=== PATIENT | male | born 1955 | race American Indian/Alaskan Native ===

== ENCOUNTER 2019-12-31 13:22 | Observation (INO) | payer OTHER ==
[2019-12-31] MEDS ORDERED: ASPIRIN 81 MG TAB CHEW PO ONE (14:34)
[2019-12-31] MEDS ORDERED: MORPHINE 4 MG/1 ML INJ IV ONE (14:35)
[2019-12-31] MEDS ORDERED: ONDANSETRON 4 MG/2 ML INJ IV ONE (14:35)
[2019-12-31 14:58] LABS: Basophils % (Auto) 0.4 % (0.0-1.8); Eosinophils % (Auto) 0.3 % (0.0-4.3); Hematocrit 37.3 % (35.5-45.6); Hemoglobin 12.4 gm/dl (11.8-15.2); Lymphocytes # (Auto) 0.9 K/mm3 (1.2-5.4); Lymphocytes % (Auto) 10.3 % (13.4-35.0); Mean Corpuscular HGB Conc 33 % (32-34); Mean Corpuscular Volume 84 fl (84-94); Monocytes # (Auto) 1.1 K/mm3 (0.0-0.8); Monocytes % (Auto) 12.3 % (0.0-7.3); Platelet Count 408 K/mm3 (140-440); Red Blood Count 4.42 M/mm3 (3.65-5.03); Red Cell Distribution Width 15.1 % (13.2-15.2)
--- NOTE | 2019-12-31 15:00 | Emergency Department Report ---
ED Chest Pain HPI - General Chief Complaint: Pain General Stated Complaint: CHEST PAIN/GOUT Time Seen by Provider: 12/31/19 14:25 Source: EMS Mode of arrival: Stretcher Limitations: No Limitations - History of Present Illness Initial Comments: Patient is 64 years old male with history of coronary artery disease status post stents, hypertension and gout. Patient also reported history of cardiac arrest in October 2019. Patient presented to the ER complaining of left sided chest pain radiation to the left arm. Patient stated the pain started this morning. Patient stated that he took 3 nitro and it did help with his pain. Patient is denying any shortness of breath, cough fever or chills. Patient is also complaining of generalized joint pain and swelling. He stated that he thinks that his gout is flaring up. MD Complaint: chest pain -: This morning Onset: during rest Pain Location: left chest Pain Radiation: LUE Severity: moderate Severity scale (0 -10): 10 Quality: tightness - Related Data Allergies Allergy/AdvReac Type Severity Reaction Status Date / Time No Known Allergies Allergy Unverified 11/29/19 08:16 Heart Score - HEART Score History: Moderately suspicious EKG: Non-specific Age: 45-65 Risk factors: > 3 risk factors or hx of atherosclerotic disease Troponin: < normal limit HEART Score: 5 - Critical Actions Critical Actions: 4-6 pts:12-16.6% risk of adverse cardiac event. Should be admitted ED Review of Systems ROS: Stated complaint: CHEST PAIN/GOUT Other details as noted in HPI Comment: All other systems reviewed and negative Constitutional: denies: chills, fever Respiratory: denies: cough, shortness of breath, SOB with exertion, SOB at rest, wheezing Cardiovascular: chest pain Gastrointestinal: denies: abdominal pain, nausea, vomiting Musculoskeletal: denies: back pain ED Past Medical Hx - Past Medical History Previous Medical History?: Yes Hx Hypertension: Yes Hx Heart Attack/AMI: Yes Hx Arthritis: Yes Additional medical history: Gout. Cardiac arrest (2019). Left hand crushed in accident (limited movement) - Surgical History Past Surgical History?: Yes Hx Coronary Stent: Yes Additional Surgical History: Ortho - Social History Smoking Status: Former Smoker ED Physical Exam - General Limitations: No Limitations General appearance: alert, in no apparent distress - Head Head exam: Present: atraumatic, normocephalic, normal inspection - Eye Eye exam: Present: normal appearance, PERRL - ENT ENT exam: Present: normal exam, normal orophraynx, mucous membranes moist - Neck Neck exam: Present: normal inspection, full ROM. Absent: tenderness, meningismus, lymphadenopathy, thyromegaly - Respiratory Respiratory exam: Present: normal lung sounds bilaterally - Cardiovascular Cardiovascular Exam: Present: regular rate, normal rhythm, normal heart sounds - GI/Abdominal GI/Abdominal exam: Present: soft, normal bowel sounds. Absent: distended, tenderness, guarding, rebound, rigid, organomegaly, mass, bruit, pulsatile mass, hernia - Extremities Exam Extremities exam: Present: normal inspection, full ROM, normal capillary refill. Absent: tenderness, pedal edema, joint swelling, calf tenderness - Back Exam Back exam: Present: normal inspection, full ROM. Absent: CVA tenderness (R), CVA tenderness (L), muscle spasm, paraspinal tenderness, vertebral tenderness - Neurological Exam Neurological exam: Present: alert, oriented X3, CN II-XII intact, normal gait, reflexes normal. Absent: motor sensory deficit - Psychiatric Psychiatric exam: Present: normal mood - Skin Skin exam: Present: warm, intact, normal color ED Course Vital Signs 12/31/19 12/31/19 12/31/19 14:08 14:12 14:16 Temperature 99.1 F Pulse Rate 70 68 Respiratory 20 12 Rate Blood Pressure 127/79 Blood Pressure 127/79 [Right] O2 Sat by Pulse 99 99 100 Oximetry 12/31/19 12/31/19 12/31/19 14:30 14:46 15:00 Temperature Pulse Rate 73 71 73 Respiratory 10 L 15 19 Rate Blood Pressure 127/79 127/79 127/79 Blood Pressure [Right] O2 Sat by Pulse 100 98 100 Oximetry 12/31/19 12/31/19 12/31/19 15:16 15:30 15:33 Temperature Pulse Rate 76 71 Respiratory 18 22 16 Rate Blood Pressure 127/79 127/79 Blood Pressure [Right] O2 Sat by Pulse 96 96 Oximetry 12/31/19 12/31/19 15:46 16:00 Temperature Pulse Rate 68 71 Respiratory 18 14 Rate Blood Pressure 127/79 127/79 Blood Pressure [Right] O2 Sat by Pulse 98 94 Oximetry ED Medical Decision Making - Lab Data Result diagrams: 12/31/19 14:44 12/31/19 14:44 - EKG Data -: EKG Interpreted by Me EKG shows normal: sinus rhythm Rate: normal - EKG Data Interpretation: no acute changes - Radiology Data Radiology results: report reviewed - Medical Decision Making Patient is 64 years old male with history of coronary artery disease status post stents, hypertension and gout. Patient also reported history of cardiac arrest in October 2019. Patient presented to the ER complaining of left sided chest pain radiation to the left arm. Patient stated the pain started this morning. Patient stated that he took 3 nitro and it did help with his pain. Patient is denying any shortness of breath, cough fever or chills. Patient is also complaining of generalized joint pain and swelling. He stated that he thinks that his gout is flaring up. Patient stated that he already took 4 baby aspirin this morning. EKG showed no ST elevation. Labs reviewed and is unremarkable including a negative troponin. Patient received morphine for pain. I discussed the patient with Dr. Cano, he agreed to admit the patient to medical service for further management. Critical care attestation.: If time is entered above; I have spent that time in minutes in the direct care of this critically ill patient, excluding procedure time. ED Disposition Clinical Impression: Chest pain, Acute gouty arthritis Disposition: OP ADMIT IP TO THIS HOSP Is pt being admited?: Yes Condition: Stable Instructions: Chest Pain (ED) Referrals: PRIMARY CARE, [Primary Care Provider] - 3-5 Days
[2019-12-31 15:15] LABS: INR 1.22 (0.87-1.13); Partial Thromboplastin Time 31.7 Sec. (24.2-36.6)
[2019-12-31 15:16] LABS: BUN/Creatinine Ratio 13; Blood Urea Nitrogen 18 mg/dL (9-20); Calcium 9.5 mg/dL (8.4-10.2); Hemolysis Index 3
--- NOTE | 2019-12-31 15:24 | XRay Report ---
CHEST 1 VIEW INDICATION / CLINICAL INFORMATION: Chest Pain. COMPARISON: None available. FINDINGS: SUPPORT DEVICES: None. HEART / MEDIASTINUM: No significant abnormality. LUNGS / PLEURA: No significant pulmonary or pleural abnormality.. No pneumothorax. ADDITIONAL FINDINGS: No significant additional findings. IMPRESSION: 1. No acute findings. Signer Name: Kaveh Ramirez MD Signed: 12/31/2019 3:20 PM Workstation Name: [id number]
--- NOTE | 2019-12-31 17:16 | Cat Scan Report ---
CTA of the chest with 3D Reconstruction Indication: ,MAIN: CHEST PAIN x3days [id number] 100ml Technique: TECHNIQUE: Axial CT images were obtained through the chest after injection of 100 cc of Omnipaque 350 IV contrast. 3 plane MIP reconstructions were produced. All CT scans at this location are performed using CT dose reduction for ALARA by means of automated exposure control. COMPARISON: None Automatic exposure control was utilized in an attempt to reduce radiation dose. Findings: Pulmonary arteries: The main pulmonary artery and right and left pulmonary artery branches fill satis factorily with contrast. No pulmonary embolus is seen. Lungs: There is minimal dependent atelectasis in the bases. Mediastinum: Heart size is normal. No adenopathy is seen. Atherosclerotic calcifications are noted i n the coronary arteries. There appears to be a left coronary stent Aorta: Normal in diameter. No dissection seen within limits of this exam. There is cholelithiasis. Impression: No pulmonary embolus is seen There is cholelithiasis. Signer Name: Kaveh Ramirez MD Signed: 12/31/2019 5:11 PM Workstation Name: [id number]
[2019-12-31 17:42] LABS: Bilirubin,Urine NEG (Negative); Blood,Urine NEG (Negative); Color,Urine Yellow (Yellow); Mucus,Urine FEW /HPF; Protein,Urine <15 mg/dL mg/dL (Negative); Urobilinogen,Urine < 2.0 mg/dL (<2.0); WBC,Urine < 1.0 /HPF (0.0-6.0)
[2019-12-31] MEDS ORDERED: ACETAMINOPHEN 325 MG TAB PO PRN (18:40)
[2019-12-31] MEDS ORDERED: oxyCODONE /ACETAMINOPHEN 5-325MG TAB PO PRN (18:40)
[2019-12-31] MEDS ORDERED: ONDANSETRON 4 MG/2 ML INJ IV PRN (18:40)
[2019-12-31] MEDS ORDERED: HYDROmorphone 1 MG/1 ML INJ IV PRN (18:40)
[2019-12-31] MEDS ORDERED: FAMOTIDINE 20 MG/2 ML INJ IV SCH (22:00)
[2019-12-31] MEDS: HEPARIN 5,000 UNIT/1 ML VIAL SUB-Q SCH (23:30)
[2019-12-31] MEDS: INDOMETHACIN 25 MG CAP PO SCH (23:30)
[2019-12-31] MEDS: COLCHICINE 0.6 MG CAP PO SCH (23:30)
[2019-12-31] MEDS: predniSONE 20 MG TAB PO SCH (23:30)
[2020-01-01] MEDS ORDERED: traZODone 100 MG TAB PO PRN ×2 (00:02→22:00)
[2020-01-01] MEDS ORDERED: QUEtiapine 100 MG TAB PO PRN (00:06)
[2020-01-01] MEDS: INDOMETHACIN 25 MG CAP PO SCH ×2 (06:04→14:25)
[2020-01-01 06:27] LABS: Basophils % (Auto) 0.2 % (0.0-1.8); Eosinophils % (Auto) 0.2 % (0.0-4.3); Hematocrit 35.9 % (35.5-45.6); Hemoglobin 12.1 gm/dl (11.8-15.2); Lymphocytes # (Auto) 0.7 K/mm3 (1.2-5.4); Lymphocytes % (Auto) 8.7 % (13.4-35.0); Mean Corpuscular HGB Conc 34 % (32-34); Mean Corpuscular Volume 84 fl (84-94); Monocytes # (Auto) 0.5 K/mm3 (0.0-0.8); Monocytes % (Auto) 6.2 % (0.0-7.3); Platelet Count 412 K/mm3 (140-440); Red Blood Count 4.29 M/mm3 (3.65-5.03); Red Cell Distribution Width 14.8 % (13.2-15.2)
[2020-01-01 06:57] LABS: Alanine Aminotransferase 11 units/L (7-56); Albumin 3.7 g/dL (3.9-5); BUN/Creatinine Ratio 18; Blood Urea Nitrogen 21 mg/dL (9-20); Calcium 9.3 mg/dL (8.4-10.2); Hemolysis Index 0
--- NOTE | 2020-01-01 08:16 | Event Note ---
Date: 12/31/19 See H/p in reports Chest pain-r/o [place] Acute Gouty artritis
[2020-01-01] MEDS ORDERED: QUETIAPINE FUMARATE 300 MG PO PRN (08:23)
[2020-01-01] MEDS ORDERED: SERTRALINE HCL 50 MG PO SCH (10:00)
[2020-01-01] MEDS ORDERED: SERTRALINE 50 MG TAB PO SCH (10:00)
[2020-01-01] MEDS: REGADENOSON 0.4 MG/5 ML INJ IV ONE ×2 (10:39→12:41)
--- NOTE | 2020-01-01 11:43 | History and Physical Report ---
In October cHIEF COMPLAINT: Left-sided chest pain for 1 day. HISTORY OF PRESENT ILLNESS: A 64-year-old with history of coronary artery disease, status post stents in 10/2019, hypertension and gout, comes in for left-sided chest pain since a.m. Chest pain radiated to the left arm. The patient apparently had a cardiac arrest in 10/2019 and was revived. The patient [facility]. The patient also has joint pains in both the knees and ankles, which he attributes to acute gout. Chest pain is about 7 on a scale of 1-10, intermittent in nature. No diaphoresis, no palpitations, no shortness of breath. No exacerbating or precipitating factors. PAST MEDICAL HISTORY: Significant for acute MT, hypertension, arthritis, cardiac arrest. PAST SURGICAL HISTORY: Coronary stents in October 2019 SOCIAL HISTORY: He is a former smoker. FAMILY HISTORY: Hypertension. REVIEW OF SYSTEMS: Significant for left-sided chest pain and pain in both the knees and ankles and feet. Otherwise, review of systems negative. A 14-point review of systems done. PHYSICAL EXAMINATION: GENERAL: Elderly male, cooperative during the exam, unkempt. VITAL SIGNS: Blood pressure 126/74, temperature is 99.1, pulse is 67, respirations are 16, sats are 96. HEENT: Unremarkable. Pupils equal and reactive. NECK: Supple, no lymphadenopathy, no thyromegaly. LUNGS: Clear to auscultation and percussion. Good air entry. CARDIOVASCULAR: S1, S2 heard. No gallop, no murmur, no rub. Apical impulse in left fifth intercostal space and midclavicular line. ABDOMEN: Soft and benign. No hepatosplenomegaly, no guarding, no rigidity Bowel sounds are normal CENTRAL NERVOUS SYSTEM: Alert and oriented x4 DIAGNOSTIC DATA: EKG shows normal sinus rhythm, no acute ST-T wave changes. Chest x-ray show no acute findings. Chest CTA shows low probability for PE. There is cholelithiasis. ASSESSMENT AND PLAN: 1. Chest pain, rule out myocardial infarction, chest pain protocol. Lexiscan in the morning. 2. Hypertension. Continue antihypertensives in the form of amlodipine and hydrochlorothiazide. We will stop the hydrochlorothiazide because of the gouty flare-ups. 3. Hyperlipidemia. Continue atorvastatin. 4. Gouty arthritis. The patient was started on colchicine and prednisone and Indocin. We will add allopurinol. 5. Coronary artery disease. Continue Brilinta. 6. Depression/schizophrenia. The patient on Seroquel 300 mg at bedtime. 7. Deep venous thrombosis prophylaxis, heparin 5000 q. 12. JOB# [id number] [facility]S MTDD
[2020-01-01] MEDS ORDERED: TICAGRELOR 90 MG TAB PO SCH (12:00)
[2020-01-01] MEDS ORDERED: FAMOTIDINE 20 MG TAB PO SCH (13:00)
[2020-01-01 13:13] VITALS: BP 122/77
[2020-01-01] MEDS: predniSONE 20 MG TAB PO SCH (14:18)
[2020-01-01] MEDS: COLCHICINE 0.6 MG CAP PO SCH (14:19)
[2020-01-01] MEDS: HEPARIN 5,000 UNIT/1 ML VIAL SUB-Q SCH (14:19)
--- NOTE | 2020-01-01 14:26 | Treadmill Report ---
THALLIUM STRESS TEST REPORT LEFT VENTRICLE: Left ventricular chamber size is within normal limits. Perfusion study demonstrates a small, fixed inferoapical defect, worse on the resting study. No reversible defects identified. Gated analysis demonstrates normal left ventricular systolic function, ejection fraction of 64%. CONCLUSION: Small fixed inferoapical defect with reversibility, consistent with diaphragmatic attenuation artifact. No ischemia is demonstrated on this study. Clinical correlation is recommended. [facility]# [id number] [facility]/NT[facility]
[2020-01-01] MEDS ORDERED: MECLIZINE 25 MG TAB PO PRN (15:52)
[2020-01-01] MEDS ORDERED: ASPIRIN EC 81 MG TAB PO SCH (16:00)
[2020-01-01] MEDS ORDERED: BISOPROLOL FUMARATE 5 MG PO SCH (16:00)
[2020-01-01] MEDS ORDERED: NON-FORMULARY EACH (Atorvastatin Calcium [Lipitor] 80 MG) PO SCH (16:00)
--- NOTE | 2020-01-01 16:03 | Discharge Summary ---
Providers - Providers Date of Admission: 12/31/19 18:40 Date of discharge: 01/01/20 Attending physician: RAEGAN LOVE Primary care physician: CATERING DRIVER Hospitalization Condition: Stable Pertinent studies: Lexiscan negative Hospital course: Patient is admitted for chest pain rule out PA patient also had pain in both the knees. Patient has history of severe gout patient's uric acid was 11.5 patient was admitted for chest pain rule out PA hypertension hyperlipidemia gouty arthritis coronary artery disease depression and schizophrenia. Patient had Lexiscan which was negative. Troponins were negative. Uric acid was 11.5. Patient counseled about his diet patient not to take excessive red meat and foods high in uric acid. Lexiscan was normal patient being discharged on his antihypertensives along with colchicine and Indocin and prednisone for the gouty arthritis. Patient was informed that the hydrochlorothiazide was stopped bec ause it increase the uric acid level and causes gout. Patient should do well without hydrochlorothiazide. No CHF no pedal edema. Patient to follow-up with cardiology in 1 week. Patient also to follow-up with the [facility] which he [facility]. Disposition: DC-01 TO HOME OR SELFCARE Core Measure Documentation - Palliative Care Palliative Care/ Comfort Measures: Not Applicable - Core Measures Any of the following diagnoses?: none Exam - Constitutional Vitals: Temp Pulse Resp BP Pulse Ox 98.1 F 63 18 122/77 96 01/01/20 08:16 01/01/20 08:16 01/01/20 08:16 01/01/20 12:43 01/01/20 08:16 General appearance: Present: no acute distress, well-nourished - EENT Eyes: Present: PERRL ENT: hearing intact, clear oral mucosa - Neck Neck: Present: supple, normal ROM - Respiratory Respiratory effort: normal Respiratory: bilateral: CTA - Cardiovascular Heart rate: 78 Rhythm: regular Heart Sounds: Present: S1 & S2. Absent: rub, click - Extremities Extremities: pulses symmetrical, No edema Peripheral Pulses: within normal limits - Abdominal General gastrointestinal: Present: soft, non-tender, non-distended, normal bowel sounds Male genitourinary: Present: normal - Integumentary Integumentary: Present: clear, warm, dry - Musculoskeletal Musculoskeletal: gait normal, strength equal bilaterally - Psychiatric Psychiatric: appropriate mood/affect, intact judgment & insight - Neurologic Neurologic: CNII-XII intact, moves all extremities Plan Activity: no restrictions Diet: low salt Follow up with: PRIMARY CAREMD [Primary Care Provider] - 3-5 Days BROWN ARGUETA MD [Staff Physician] - 7 Days
[2020-01-01] MEDS ORDERED: BENZTROPINE 0.5 MG TAB PO SCH (22:00)
[2020-01-02] MEDS ORDERED: amLODIPine 10 MG TAB PO SCH (10:00)
[2020-01-02] MEDS ORDERED: NICOTINE 21 MG/24 HR PATCH TD SCH (10:00)
== END 2020-01-01 17:46 | disposition home or self-care (01) ==
LOC: ED 13:22 → 4A 18:40
PROVIDERS: ADMIT Internal Medicine; ATTEND Internal Medicine
DX: R07.89 Other chest pain (principal); I10 Essential (primary) hypertension; I25.10 Atherosclerotic heart disease of native coronary artery without angina pectoris; I25.2 Old myocardial infarction; M10.9 Gout, unspecified; M19.90 Unspecified osteoarthritis, unspecified site; E78.5 Hyperlipidemia, unspecified; F20.9 Schizophrenia, unspecified; F32.9 Major depressive disorder, single episode, unspecified; Z95.1 Presence of aortocoronary bypass graft; Z87.891 Personal history of nicotine dependence
CPT/HCPCS: 36415; 71045; 71275; 78452; 80048; 80053; 81001; 83036; 83690; 84484; 84550; 85025; 85379; 85610; 85730; 87116; 93005; 93010; 93017; 96372; 96374; 96375; 99285; A9502; G0378; J1644; J2270; J2405; J2785; J7512; Q9967